=== PATIENT | female | born 1940 | race Caucasian/White ===

== ENCOUNTER 2016-06-02 18:26 | Emergency (ER) ==
--- NOTE | 2016-06-02 19:02 | PROVIDER DOCUMENTATION ---
HPI-General Adult - General Chief Complaint: Head Injury Stated Complaint: fall/ head injury Time Seen by Provider: 06/02/16 18:30 Source: patient Allergies/Adverse Reactions: Patient Allergies Allergy/AdvReac Type Severity Reaction Status Date / Time codeine Allergy Unknown Verified 06/02/16 18:58 Home Medications: Home Medication List Medication Instructions Recorded Confirmed Last Taken Type Hydrochlorothiazide 12.5 mg PO DAILY 05/28/14 06/02/16 06/02/16 History Quinapril [Accupril] 40 mg PO DAILY 05/28/14 06/02/16 06/02/16 History Hydrocodone/APAP 7.5 mg/325 mg 1 each PO Q6H PRN PRN #14 tablet 06/02/16 Unknown Rx [[place]-7.5] Levothyroxine [Synthroid] 100 microgm PO DAILY 06/02/16 06/02/16 06/02/16 History - History of Present Illness -Gen Adult Nature of Presenting Problems: This pt 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 Pt states she was moving a chair when she tripped and fell. Denies LOC or taking any anticoagulants. She has decreased ROM to her right arm and evident bruising on her right eye and right side of her head. Location of Pain/Injury: reports: head, face, upper extremity. denies: mouth, neck, chest, hand(s), abdomen, back, pelvis, genitalia, lower extremity, feet, upper body, lower body, generalized Pain Radiation: reports: arm(s) (right arm/shoulder), shoulder(s). denies: chest, epigastric, feet, groin, jaw, flank (L), legs (lower), LLQ, LUQ, neck, periumbilical, flank (R), RLQ, RUQ, scapula, scrotal, sternal notch, suprapubic , legs (upper), urethral, vaginal Quality of Pain: reports: aching, dull. denies: burning, cramping, fullness, indigestion, pressure, sharp, stabbing, tearing, throbbing, tightness Severity: reports: moderate Onset/Duration: reports: 1 hour ago Timing: reports: still present Context/Activities at Onset: reports: light activity. denies: moderate activity , vigorous activity, recent emotional stress, possible bad food, cold exposure, eating, rest, sleep Modifying Factors: improves with: movement, palpation. worse with: analgesics, antacids, breathing, cold/heat therapy, coughing, eating, exercise, immobilization, lying down, massage, rest, urinating, vomiting Associated Symptoms: reports: arm pain, joint pain (right arm pain). denies: chest pain, constipation, cough, diaphoresis, diarrhea, dizziness, EENT symptoms , fatigue, fever/chills, headaches, loss of appetite, malaise, muscle aches, sinus congestion/drainage, nausea, rash, seizure, shortness of breath - Diabetes Related Context Context: denies: low blood sugar, high blood sugar, change in mental status, unresponsive, prior DKA hospitalization - Sickle Cell Pain Related Context Sickle Cell Pain Location: reports: none. denies: head, face, mouth, hand(s), abdomen, back, pelvis, upper body, lower body, generalized Review of Systems - Adult - REVIEW OF SYSTEMS - ADULT Constitutional: reports: see HPI, other. denies: fever, fatique, night sweats, weight loss Eyes: reports: see HPI, eye pain (right eye). denies: discharge, dry eyes, decreased vision, blurred vision, double vision Ears, Nose, Mouth & Throat: reports: see HPI. denies: ear discharge, ear pain, hearing loss, tinnitus, epistaxis, sinus problem, nose pain, loose teeth, mouth/ dental pain, mouth swelling, hoarseness, throat pain, throat swelling Cardiovascular: reports: see HPI. denies: chest pain, edema, heart murmur, irregular heart rate, orthopnea, palpitations, poor circulation, PND, syncope Respiratory: reports: see HPI. denies: chronic cough, cough, dyspnea on exertion, excessive sputum production, shortness of breath, wheezing Gastrointestinal: reports: see HPI. denies: abdominal pain, hematemesis, constipation, diarrhea, difficulty swallowing, frequent heartburn, nausea, poor appetite Genitourinary: reports: see HPI. denies: dysuria, discharge, frequency, flank pain, frequent UTI's, hematuria, hesitency, incontinence Musculoskeletal: reports: see HPI, bone pain, joint pain, joint swelling (right arm and right facial) Integumentary: reports: see HPI. denies: hives, hair loss, itching, mole changes, nail changes, rash Neurological: reports: see HPI. denies: ataxia, dizziness/vertigo, headache/ migraines, loss of balance, numbness, paresthesia, syncope, tremors Psychiatric: reports: see HPI. denies: anxiety, anti-depressant use, alcohol/ drug dependence, depression, emotional problems, insomnia, panic attacks, suicidal thoughts Endocrine: reports: see HPI. denies: change in skin pigment, excessive sweating , goiter, cold intolerance, heat intolerance, increased hunger, increased thirst , polyuria Hematologic/Lymphatic: reports: see HPI. denies: blood clots, easy bruising, low blood count, lymphedema, prolonged bleeding Allergic/Immunologic: reports: see HPI. denies: allergic reactions, allergic rhinitis, asthma, eczema, food allergy, frequent infections, hay fever, hives Past History - Adult - PAST MEDICAL HISTORY-ADULT Review of Records: reports: Old Records Reviewed, Nursing Assessment Review, Medications Reviewed, Social history reviewed & non-contributory. Major Childhood Illnesses: reports: denies history Cardiovascular: reports: HTN, hyperlipidemia Respiratory: reports: denies history Gastrointestinal: reports: denies history Obstetrical/Gynecological: reports: denies history Genitourinary: reports: denies history Musculoskeletal: reports: denies history Neurological: reports: denies history Endocrine/Immune: reports: denies history Other Conditions: reports: denies history - IMMUNIZATION STATUS Childhood Immunizations: See Nurse Assessment Flu Vaccine: See Nurse Assessment - FAMILY HISTORY Family History: reviewed, not pertinent Physical Exam-General - PHYSICAL EXAM-ADULT Initial Vital Signs Reviewed: Yes - CONSTITUTIONAL General Appearance: appears well, alert, no apparent distress. negative: mild distress, moderate distress, thin, anxious, lethargic, slow to respond, obtunded , combative - EYES Eyes: PERRL/EOMI, pink conjunctivae. negative: EOM palsy, meningismus, pale conjunctivae, photophobia, sclera injected, scleral icterus, subconjunctival hemorrhage, sunken eyes - HEAD, EARS, NOSE, MOUTH & THROAT HENMT: normocephalic/atraumatic, moist mucous membranes, normal ENT inspection, frontal tenderness. negative: angioedema, dental decay, hearing deficit, pharyngeal erythema, tonsillar exudate, TM abnormal, TM obscurred by cerumen, maxillary tenderness - NECK Neck: non-tender, full range of motion, normal inspection. negative: C-spine tenderness, limited range of motion, lymphadenopathy, trachial deviation, tender midline - RESPIRATORY Respiratory: lungs clear, normal breath sounds, no pleuratic chest pain, no respiratory distress, no accessory muscle use. negative: respiratory distress, decreased breath sounds, accessory muscle use, crackles, wheezing, decreased rate, increased rate, crepitus - CARDIOVASCULAR Cardiovascular: normal peripheral pulses (RUE pulse +2), regular rate, rhythm, no edema, no gallop, no JVD, no murmur. negative: extra beats, friction rub, irregularly irregular - CHEST (BREASTS) Chest/Breast: deferred - GASTROINTESTINAL (ABDOMEN) Abdominal Exam: normal bowel sounds, non tender, no organomegaly, no pulsatile mass. negative: abdominal bruit, guarding, rigid, hernia, mass, hepatomegaly, spleenomegaly - GENITOURINARY Female Genitalia/Pelvic Exam: deferred Rectal Exam: deferred Hemoccult Exam: deferred - LYMPHATIC Lymphatic: no adenopathy. negative: axilla node tender, cervical node tenderness, inguinal node tender, enlargement, striations, streaking - MUSCULOSKELETAL Back Exam: normal inspection, no CVA tenderness, no vertebral tenderness. negative: CVA tenderness, decreased range of motion, ecchymosis, muscle spasm, swelling, vertebral tenderness Extremity: normal capillary refill, tenderness (RUE). negative: no pedal edema , no calf tenderness Peripheral Pulses: radial (R): 2+, radial (L): 2+ - SKIN Integumentary: normal color, warm/dry. negative: cyanosis, diaphoresis, decubitus, jaundice, laceration(s), rash, swelling - NEUROLOGIC Neurologic: community leader II-XII nml as tested, grossly normal, no motor/sensory deficits . negative: abnormal community leader II-XII, facial droop, focal weakness, motor weakness - PSYCHIATRIC Psych/Mental Status: normal mood/affect, normal thought content, oriented x 3. negative: disoriented x 3, anxious, disheveled, paranoid, tearful Progress - PLAN OF CARE/RESULTS Progress/Plan/Lab Results: Discussed results and plan of care with patient. Patient agrees with plan and verbalizes understanding. Vital Signs Temp Pulse Resp BP Pulse Ox 06/02/16 18:57 97.4 F L 76 16 149/91 98 codeine Allergy (Verified 06/02/16 18:58) Unknown Hydrochlorothiazide 12.5 mg PO DAILY 05/28/14 Quinapril [Accupril] 40 mg PO DAILY 05/28/14 Levothyroxine [Synthroid] 100 microgm PO DAILY 06/02/16 Orders Category Date Time Status Arm Sling DIRECTED Care 06/02/16 19:43 Active OCL Splint DIRECTED Care 06/02/16 19:49 Active HEAD/C-SPINE W/O CONTRAST [CT] Stat Exams 06/02/16 18:49 Taken HUMERUS-RIGHT [RAD] Stat Exams 06/02/16 18:49 Taken Hydromorphone [Dilaudid] Med 06/02/16 20:04 Discontinued 2 mg IM NOW ONE - XRAY 1 XRAY: Right XRAY Study: Humerus XRAY Interpretation: Mid shaft Fx (Yehuda) - CT/MRI 1 CT Study: Cervical Spine, Head CT Results: NAP, No Fx (Anny) - CONSULTS/PCP/HOSPITALIST Notification #1 *Consult/PCP/Hospitalist*: Dr. Frazier Time Discussed: 19:50 Reason/Comments: Consult Consult Disposition: F/U in office (Splint and follow up in office.) Procedures - SPLINTING Right Upper Extremity Other Location: Right humerus Pre-Procedure Neurovascular Exam: Intact Splint Application (Hand-Made): Orthoglass, Sugar-Tong, Posterior OCL Applied By: fuel cell battery technician Assisted By: ED Nurse Post Procedure Neurovascular Exam: Intact Departure - Departure Time of Disposition Order: 21:33 DIAGNOSIS: Humerus fracture Qualifiers: Encounter type: initial encounter Humerus Location: shaft Fracture type: closed Fracture morphology: spiral Fracture alignment: displaced Laterality: right Qualified Code(s): S42.341A - Displaced spiral fracture of shaft of humerus, right arm, initial encounter for closed fracture Disposition: HOME 01 Certified Medical Emergency: Emergent Condition: Stable Additional Instructions: Follow up with primary care physician Follow up with Orthopedic physician Take medications as directed Return to ED for any concerns or worsening of symptoms ED Follow Up Instructions: You have been treated by a care provider in the Emergency Department. These instructions are being provided to you so you can have an understanding of how to care for yourself upon discharge. Upon discharge from the Emergency Department, you are responsible for making arrangements for follow-up care by a physician of your choice. Take all prescribed medications as directed. Return to the Emergency Department immediately for any new or worsening symptoms. You may call the Physician Referral phone number at [phone] to obtain a list of Physicians who are taking new patients. Prescriptions: Hydrocodone/APAP 7.5 mg/325 mg [[place]-7.5] 1 each PO Q6H PRN PRN #14 tablet PRN Reason: Pain Referrals: Ruby Frazier MD [STAFF PHYSICIAN] - Attestation - Physician/ LAUREN Attestation Patient care was provided by Advanced Practice Provider:: Yes Advanced Practice Provider:: Reginaldo Blackman Advanced Practice Provider documentation review:: The Mid-level provider documentation, treatment plan and medical decision making was reviewed by the physician who agrees with all treatment and medical decision making by the MLP.
[2016-06-02] MEDS ORDERED: DILAUDID IM ONE (20:04)
[2016-06-02 21:34] VITALS: BP 93/60
--- NOTE | 2016-06-02 22:21 | Diag Imaging Result Document ---
PROCEDURE NAME: HEAD/C-SPINE W/O CONTRAST - 06/02/2016 CT HEAD AND C-SPINE WITHOUT CONTRAST.: COMPARISON: 05/28/2014. FINDINGS: HEAD: There is patchy low attenuation in the periventricular and subcortical white matter that is approximately stable suggesting fairly extensive microangiopathy. There is no definite acute infarct given the limited sensitivity of CT versus MRI. There is no discrete intracranial mass, mass effect, or intracranial hemorrhage. There is no evidence of hydrocephalus. There is a soft tissue hematoma involving the scalp anteriorly on the right. The calvaria is intact. C-SPINE: There is degenerative disk disease at multiple cervical levels, most significant at and below C4-5. This is stable. There is mild stable anterolisthesis of C4 on C5 related to the degenerative change. This is causing some degree of central canal and neural foraminal narrowing at several levels that appears to be stable. No fracture, traumatic subluxation, or intrinsic osseous lesion is identified, otherwise. Surrounding soft tissues are essentially unremarkable. IMPRESSION: 1. Chronic appearing changes as described but no evidence of acute intracranial pathology. 2. Multilevel degenerative change as described but no evidence of fracture or other definite acute C-spine injury.
--- NOTE | 2016-06-02 23:13 | Diag Imaging Result Document ---
PROCEDURE NAME: HUMERUS-RIGHT - 06/02/2016 PLAIN RADIOGRAPH OF THE RIGHT HUMERUS 2 VIEWS: COMPARISON: None available. FINDINGS: There is a comminuted fracture involving the proximal shaft of the right humerus with mild varus angulation. No other definite fracture is identified. IMPRESSION: Fracture of the proximal humeral shaft as described.
== END 2016-06-02 22:01 | disposition home or self-care (01) ==
LOC: EDBD → ED 18:26 → EDUNIT# 18:26 → ED 22:01
DX: S42.341A Displaced spiral fracture of shaft of humerus, right arm, initial encounter for closed fracture (principal); S00.11XA Contusion of right eyelid and periocular area, initial encounter; S00.83XA Contusion of other part of head, initial encounter; M25.511 Pain in right shoulder; H57.11 Ocular pain, right eye; R22.31 Localized swelling, mass and lump, right upper limb; R22.0 Localized swelling, mass and lump, head; M50.30 Other cervical disc degeneration, unspecified cervical region; Z79.899 Other long term (current) drug therapy; I10 Essential (primary) hypertension; E78.5 Hyperlipidemia, unspecified; W01.0XXA Fall on same level from slipping, tripping and stumbling without subsequent striking against object, initial encounter
CPT/HCPCS: 70450; 72125; J1170